=== PATIENT | male | born 1990 | race Hispanic/Latino ===

== ENCOUNTER 2025-04-28 07:24 | Emergency (ER) | payer OTHER, SELFPAY ==
[2025-04-28 07:26] VITALS: BP 128/70; PULSE 62; RESP 18; TEMP 36.8; O2SAT 98
--- NOTE | 2025-04-28 07:52 | EX.ED.DYSGE1 ---
HPI History of Present Illness Chief Complaint: Ear Problem Informant: patient and spouse/S.O. Narrative Narrative: Formal [place] interpretation service used. Right ear pain started yesterday with drainage. Subjective fevers. No history of similar. No allergies. No past medical history. PFSH PFSH Home Medications ?Medication ?Instructions ?Recorded ?Last Taken ?Type ibuprofen 600 mg tablet 600 mg PO Q6H PRN PRN pain #20 04/28/25 Unknown Rx TABLETS Allergy/AdvReac Type Severity Reaction Status Date / Time No Known Allergies Allergy Verified 04/28/25 07:28 Social History Smoking Status: Never smoker ROS ROS ED Constitutional Constitutional ED: Reports fever(s) ENT ENT ED: Reports ear pain Cardiovascular Cardiovascular: Denies chest pain Respiratory/Chest Respiratory/Chest: Denies cough Gastrointestinal Gastrointestinal: Denies diarrhea or vomiting Musculoskeletal Musculoskeletal: Denies none Integumentary Denies rash or wounds Neurologic Neurologic: Denies weakness EXAM Physical Exam Const Vital Signs: 04/28/25 07:26 04/28/25 09:01 Temperature 98.3 F 98.3 F Temperature Source Oral Pulse Rate 62 62 Respiratory Rate 18 18 Blood Pressure 128/70 H 120/70 Blood Pressure Mean 89 86 Pulse Ox 98 98 Oxygen Delivery Method Room Air Positive well nourished and well developed General Appearance ED: well developed HEENT HEENT Narrative: Left ear: Patent, normal TM. Right ear: Dried drainage external auricular area however cerumen impaction distally, unable to visualize TM at this time. No posterior pharyngeal erythema. normocephalic and atraumatic Eyes General Eye ED: Yes normal appearance of both eyes Neck full ROM Resp normal respiratory effort and normal air movement Cardio regular rate and regular rhythm GI soft to palpation Extremity normal to inspection and full ROM Neuro oriented x3 Skin no rashes or lesions noted and no wounds MDM MDM MDM Narrative Medical decision making narrative: Interventions / MDM: Differential diagnosis: Acute otitis media with ruptured TM Diagnosis considered but do not suspect: N/A My EKG interpretation: N/A Imaging independently reviewed and interpreted by myself: N/A External documents reviewed: N/A Test considered but not ordered:N/A ED course: Nontoxic vital stable no allergies. Discussed with interpretation service findings of cerumen impaction at this time with dried drainage unable to visualize TM. Will plan with curette removal of cerumen for further evaluation. Curette removed with debrideme. Drainage deeper with ruptured TM. Interpretation service used again discussed findings and concerns. He will be placed on Cipro drops twice a day for direct treatment. He will avoid swimming. Discussed treatment with drops and cotton ball. He will be continued ibuprofen he is given follow-up with the ENT. All questions were answered. Re-evaluation: stable Disposition discussed with patient/family/significant other: Patient and significant other Case discussed with consulting clinician: N/A This note was generated with [employer] dictation software. It may contain incorrect words, spelling, and punctuation that were not noted in checking the note before signing. Discharge Plan Triage Chief Complaint: Ear Problem ED Provider: Cecil Pruitt Dx/Rx/DC Orders Clinical Impression: Acute right otitis media, Rupture of tympanic membrane due to otitis media Instructions: ED Otitis Media Adult, ED PERFORATED TM Infected [Adult] Prescriptions: New ibuprofen 600 mg tablet 600 mg PO Q6H PRN PRN (Reason: pain) Qty: 20 0RF Stand Alone Forms: ED Work / School Excuse Primary Care Provider: Care Physician,No Primary Referrals: Stanley Patterson MD [Med Staff - Active Staff] - 1-2 Weeks Activity Restrictions/Additional Instructions: Use drops twice a day 4 drops to the right ear with cottonball. No swimming at this time. Follow-up with Dr. Patterson. Print Language: [place] Disposition Disposition: Home, Self Care Discharge Date/Time: 04/28/25 09:01
[2025-04-28] MEDS: Ciprofloxacin 0.3% 2.5ml Bottle 4 DRP RIGHT EAR (08:46)
[2025-04-28] MEDS: Ibuprofen 600 MG Tablet PO (08:46)
[2025-04-28 08:48] VITALS: BMI 25.0
[2025-04-28 09:01] VITALS: BP 120/70; PULSE 62; RESP 18; TEMP 36.8; O2SAT 98
--- OUTSIDE RECORDS SUMMARY | 2025-04-28 16:06 | XMS RPT_ITS | CCD ---
Author Organization [facility] Care Team Providers Care Senior Credit Officer Name Role Phone Dr. Cecil Pruitt DO Emergency Provider [phone] Care Physician, No Primary Primary Care Provider Unavailable Medications Current Medications Medication Drug Class(es) Dates Sig (Normalized) Sig (Original) ibuprofen 600 mg oral tablet (1 source) Nonsteroidal Anti-inflammatory Drug Start: 04-28-2025 take 1 tablet by mouth every six hours as needed for pain Ibuprofen 600 mg tablet Active 600 mg PO EVERY 6 HOURS NEEDED as needed for pain April 28, 2025 12:00am Problems Problem Classification Problem Date Documented Da te Episodic/Chronic Otitis media and related conditions (2 sources) Acute right otitis media; Translations: [Otitis media, unspecified, right ear] 04-28-2025 Episodic Vital Signs Date Time Vital Sign Value Performing Clinician Kathya gonzales 04-28-2025 09:01-0400 Body temperature 98.3 [degF] Dr. Cecil Deras Work Phone: [facility] 04-28-2025 09:01-0400 Diastolic blood pressure 70 mm[Hg] Dr. Cecil Deras Work Phone: [facility] 04-28-2025 09:01-0400 Heart rate 62 /min Dr. Cecil Deras Work Phone: [facility] 04-28-2025 09:01-0400 Respiratory rate 18 /min Dr. Cecil Deras Work Phone: [facility] 04-28-2025 09:01-0400 SaO2% (BldA) [Mass fraction] 98 % Dr. Cecil Deras Work Phone: [facility] 04-28-2025 09:01-0400 Systolic blood pressure 120 mm[Hg] Dr. Cecil Deras Work Phone: [facility] 04-28-2025 08:48-0400 Body mass index (BMI) [Ratio] 25 kg/m2 Dr. Cecil Deras Work Phone: [facility] 04-28-2025 08:48-0400 Body weight 70.[address] Cecil Deras Work Phone: [facility] 04-28-2025 07:26-0400 Body height 167.[address] Cecil Deras Work Phone: [facility] Encounters Encounter Date Encounter Type Care Provider Facility Start: 04-28-2025 End: 04-28-2025 Emergency department patient visit Dr. Cecil Deras Work Phone: -Emergency Department Work Phone: Plan of Treatment Date Care Activity Detail Author Start: 04-28-2025 [facility] Patient Education ED Otitis Medi a Adult ED PERFORATED TM Infected [Adult] [facility] Work Phone: Patient referral [facility] Work Phone: Payers Date Payer Category Payer Policy ID Self-pay SELF PAY ER DEPOSIT [id number] 1 [id number] Social History Date Type Detail Facility Start: 04-28-2025 Tobacco smoking stat us NHIS Never smoked tobacco (finding) [facility] Start: 1990 Sex Assigned At Male W [facility] Evaluation note Note Date & Type Note Facility Evaluation note No assessment information availa ble [facility] Work Phone: Hospital Discharge instructions Note Date & Type Note Facility Hospital Discharge instructions Additional Instructions Use drops twice a day 4 drops to the right ear with cottonball. No swimming at this time. Follow-up with Dr. Patterson. [facility] Work Phone: Reason for referral (narrative) Note Date & Type Note Facility Reason for referral (narrative) No reason for referral information available [facility] Work Phone: Chief Complaint and Reason for Visit Chief Complaint Admit Date ear April 28, 2025 7:24 am Advance Directives Advance Directive Response Recorded Date/ Time Do you have a Healthcare Power of Institutional Custodian? No April 28, 2025 8:48am Additional Source Comments Care Teams (unrecognized sec tion and content) Team Status: Active Member Role Status Dates No Primary Care Physician Primary Care Provider Active Team Status: Inactive Member Role Status Dates Dr. Cecil Pruitt DO Emergency Provider Active Start : April 28, 2025 End: April 28, 2025 No Primary Care Physician Primary Care Provider Active Start: April 28, 2025 End: April 28, 2025 Goals (unrecognized section and content) Goals may be documented in a n alternate section FOR RECORDS PERTAINING TO PATIENTS WHO ARE OR HAVE BEEN ENROLLED IN A CHEMICAL DEPENDENCY/SUBSTANCEABUSE PROGRAM, SOME INFORMATION MAY BE OMITTED. This clinical summary was aggregated from multiple sources. Caution should be exercised in using it in the provision of clinical care. This summary normalizes information from multiple sources, and as a consequence, information in this document may materially change the coding, format and clinical context of patient data. In addition, data may be omitted in some cases. CLINICAL DECISIONS SHOULD BE BASED ON THE PRIMARY CLINICAL RECORDS. [facility]. provides no warranty or guarantee of the accuracy or completeness of information in this document.
== END 2025-04-28 09:01 | disposition home or self-care (01) ==
PROVIDERS: Emergency Provider Emergency Medicine; Visit Provider Emergency Medicine
DX: H66.91 Otitis media, unspecified, right ear (principal); H72.91 Unspecified perforation of tympanic membrane, right ear; H61.21 Impacted cerumen, right ear
CPT/HCPCS: 99282